=== PATIENT | female | born 1965 | race Caucasian/White ===

== ENCOUNTER 2017-01-15 09:31 | Inpatient (IN) | payer MEDICARE, OTHER ==
[2017-01-15 09:40] VITALS: BMI 34.8
[2017-01-15 10:26] LABS: ALB/GLOB RATIO 1.2 (1.0-2.1); ALBUMIN 4.2 g/dL (3.5-5.0); CALCIUM 9.6 mg/dL (8.4-10.2)
--- NOTE | 2017-01-15 11:03 | ED PDOC ---
HPI: General Adult Time Seen by Provider: 01/15/17 09:42 Chief Complaint (Nursing): Abnormal Labs Chief Complaint (Provider): Abnormal Labs History Per: Patient History/Exam Limitations: no limitations Onset/Duration Of Symptoms: Days Current Symptoms Are (Timing): Still Present Additional Complaint(s): Staci is a 51 y/o female who had routine blood work done yesterday, and labs tried to call with results but couldn't reach her so police escorted her to ED today. Patient has a history of thrombocytopenia, and has had transfusions in past. Dr. Aguayo is her relay record clerk. States having bleeding gums for the past 2 days. Denies any new rash, headache, or other bleeding. Pipeline Controller: Dr. Aguayo Past Medical History Reviewed: Historical Data, Nursing Documentation, Vital Signs Vital Signs: Last Vital Signs Temp 97.9 F 01/16/17 08:00 Pulse 92 H 01/16/17 09:09 Resp 20 01/16/17 08:00 BP 128/83 01/16/17 09:09 Pulse Ox 98 01/16/17 08:00 - Medical History PMH: Bipolar Disorder, HTN, Hypercholesterolemia, Hypothyroidism Denies: Diabetes, Hepatitis, HIV, Chronic Kidney Disease, Seizures, Sexually Transmitted Disease Other PMH: thrombocytopenia - Surgical History Other surgeries: Right knee surgery - Family History Family History: States: Unknown Family Hx - Social History Current smoker - smoking cessation education provided: Yes (Light) Alcohol: None Drugs: Denies - Home Medications Home Medications: Ambulatory Orders Medication Instructions Recorded Alprazolam [Xanax] 0.5 - 1 mg PO DAILY PRN 10/18/14 Calcium Carbonate/Vitamin D 1 tab PO DAILY 10/18/14 [Calcium 1200 W/Vitamin D 600 mg-100 Iu] Citalopram Hydrobromide [Celexa] 20 mg PO DAILY 10/18/14 Cyanocobalamin [Vitamin B12] 2 tab PO DAILY 10/18/14 Folic Acid 2 tab PO DAILY 10/18/14 Hydrochlorothiazide 12.5 mg PO DAILY 10/18/14 Levothyroxine [Synthroid] 112 mcg PO DAILY 10/18/14 Losartan [Cozaar] 100 mg PO DAILY 10/18/14 [place]-3 Fatty Acids/Fish Oil [Fish 1 cap PO DAILY 10/18/14 Oil 1,000 mg Softgel] Phytonadione [Vitamin K] 1 tab PO DAILY 10/18/14 Pravastatin Sodium [Pravachol] 40 mg PO HS 10/18/14 Ferrous Sulfate [Feosol] 325 mg PO DAILY 01/15/17 Potassium Chloride [Klor-Con 8 meq PO DAILY 01/15/17 Sprinkle] hydroCHLOROthiazide [Hydrodiuril] 25 mg PO DAILY 01/15/17 - Allergies Allergies/Adverse Reactions: Allergies Allergy/AdvReac Type Severity Reaction Status Date / Time codeine AdvReac NAUSEA Verified 01/15/17 14:44 Review of Systems ROS Statement: Except As Marked, All Systems Reviewed And Found Negative ENT: Positive for: Other (Bleeding gums) Skin: Positive for: Rash (but no new rash) Neurological: Negative for: Headache Physical Exam - Reviewed Nursing Documentation Reviewed: Yes Vital Signs Reviewed: Yes - Physical Exam Appears: Positive for: Non-toxic, No Acute Distress Head Exam: Positive for: ATRAUMATIC, NORMAL INSPECTION, NORMOCEPHALIC Skin: Positive for: Warm, Dry, Rash (Chronic rash to the extremities, reticular rash (old)) Eye Exam: Positive for: EOMI, Normal appearance, PERRL Neck: Positive for: Normal, Painless ROM, Supple Cardiovascular/Chest: Positive for: Regular Rate, Rhythm. Negative for: Murmur Respiratory: Positive for: Normal Breath Sounds. Negative for: Accessory Muscle Use, Respiratory Distress Gastrointestinal/Abdominal: Positive for: Soft. Negative for: Tenderness Back: Positive for: Normal Inspection. Negative for: Vertebral Tenderness Extremity: Positive for: Normal ROM. Negative for: Pedal Edema, Deformity Neurologic/Psych: Positive for: Alert, Oriented - Laboratory Results Result Diagrams: 01/16/17 06:00 01/15/17 10:00 - ECG O2 Sat by Pulse Oximetry: 100 (RA) Pulse Ox Interpretation: Normal - Physician Consult Information Time Consulting Physican Contacted: 11:00 Physician Contacted: Jak Aguayo Outcome Of Conversation: Recommends Solumedrol 125 mg IV then 40 mg q12 and 1 bag platelets. Medical Decision Making Medical Decision Making: Time: 9:54 Initial Plan: --CMP --CBC w differential --PTT --Prothrombin time --ED Urine dipstick --Urinalysis --Pending reevaluation Time: 10:52 --Blood type and screen Time: 11:00 --Discussed patient with relay record clerk, Dr. Jak Aguayo, who recommended Solu- medrol and then 40 mg q12 and 1 bag platelets Time: 11:20 --Ordered Solu-medrol 125 mg IV --40 mg q12 and 1 bag platelets Time: 11:51 --Patient is to be admitted inpatient for thrombocytopenia, ITP, anemia Time: 12:16 --Trasnfusion ordered --Ordered CXR Scribe Attestation: Documented by Evonne Felix, acting as a scribe for Kalyn Bradley MD Provider Scribe Attestation: All medical record entries made by the Scribe were at my direction and personally dictated by me. I have reviewed the chart and agree that the record accurately reflects my personal performance of the history, physical exam, medical decision making, and the department course for this patient. I have also personally directed, reviewed, and agree with the discharge instructions and disposition. Disposition - Clinical Impression Clinical Impression: Thrombocytopenia, Anemia - Patient ED Disposition Is Patient to be Admitted: Yes - Disposition Disposition Time: 11:51 Condition: STABLE - Pt Status Changed To: Hospital Disposition Of: Inpatient - Admit Certification Admit to Inpatient:: After my assessment, the patient will require hospitalization for at least two midnights. This is because of the severity of symptoms shown, intensity of services needed, and/or the medical risk in this patient being treated as an outpatient. - POA Present On Arrival: None
[2017-01-15 11:22] LABS: BASO % 0.5 % (0.0-2.0); EOS # 0.1 K/uL (0.0-0.7); EOS % 1.8 % (0.0-4.0); LYMPH # 1.1 K/uL (1.0-4.3); LYMPH % 20.1 % (20.0-40.0); MEAN CORPUSCULAR HEMOGLOBIN 33.2 pg (27.0-31.0); MEAN CORPUSCULAR HGB CONC 34.9 g/dL (33.0-37.0); MEAN PLATELET VOLUME 9.9 fl (7.2-11.7); MONO # 0.3 K/uL (0.0-0.8); MONO % 5.1 % (0.0-10.0); NEUT # 3.9 K/uL (1.8-7.0); NEUT % 72.5 % (50.0-75.0); NRBC % 0.1 % (0.0-0.0); RBC 2.34 Mil/uL (3.80-5.20); RED CELL DISTRIBUTION WIDTH 16.9 % (11.5-14.5); WHITE BLOOD COUNT 5.4 K/uL (4.8-10.8)
[2017-01-15 11:27] LABS: HEMOGLOBIN 7.8 g/dL (12.0-16.0); MEAN CELL VOLUME 95.2 fl (81.0-99.0)
[2017-01-15 11:31] LABS: INR 1.2 (0.9-1.2); PROTHROMBIN TIME 12.3 Seconds (9.8-13.1)
[2017-01-15 11:33] LABS: SQUAMOUS EPITHIAL < 1 /hpf (0-5); URINE BILIRUBIN NEGATIVE (NEGATIVE); URINE BLOOD SMALL (NEGATIVE); URINE CLARITY CLEAR (Clear); URINE COLOR YELLOW (YELLOW); URINE GLUCOSE (UA) NEG (Normal); URINE LEUKOCYTE ESTERASE NEG Leu/uL (Negative); URINE NITRATE NEGATIVE (NEGATIVE); URINE PROTEIN NEGATIVE (NEGATIVE); URINE UROBILINOGEN 0.2-1.0 mg/dL (0.2-1.0)
[2017-01-15 12:22] LABS: PARTIAL THROMBOPLASTIN TIME 59.6 Seconds (25.6-37.1)
--- NOTE | 2017-01-15 20:02 | RAD ---
HISTORY: Admission COMPARISON: No prior. FINDINGS: LUNGS: No active pulmonary disease. PLEURA: No significant pleural effusion identified, no pneumothorax apparent. CARDIOVASCULAR: Normal. OSSEOUS STRUCTURES: No significant abnormalities. VISUALIZED UPPER ABDOMEN: Normal. OTHER FINDINGS: None. IMPRESSION: No active disease.
[2017-01-15] MEDS: methylPREDNISolone 40 MG in Sodium Chloride 0.9% 50 ML IVPB SCH (21:04)
[2017-01-15] MEDS: Pravastatin Sodium 40 MG TAB PO SCH (22:10)
--- NOTE | 2017-01-16 01:51 | CP.PCM.CON ---
History of Present Illness - History of Present Illness History of Present Illness: 49 year old female with a history of depression, ITP s/p Rituximab, admitted with gingival bleeding, anemia, and thrombocytopenia. The patient was succesfully treated for ITP with steroids and rituximab. She notes to gingival bleeding when brushing her teeth which prompted her to come to the ER. In the ER she was found to have a plt count of 4,000. She is s/p 1 bag of platelets and currently receiving IV steroids. Past medical history: Depression, ITP Past surgical history: None Family history: Denies hematologic and oncologic problems. Social history: Denies tobacco, alcohol, and illicit drug use. Allergies: Codeine Review of systems: All remaining review of systems including HEENT, cardiovascular, respiratory, gastrointestinal, genitourinary, musculoskeletal, dermatologic, neurologic, and psychiatric are negative unless mentioned in the HPI. Past Patient History - Infectious Disease Hx of Infectious Diseases: None - Past Medical History & Family History Past Medical History?: Yes - Past Social History Smoking Status: Former Smoker - CARDIAC Hx Hypercholesterolemia: Yes Hx Hypertension: Yes - PULMONARY Hx Tuberculosis: No - NEUROLOGICAL Hx Neurological Disorder: Yes Hx Seizures: No Hx Transient Ischemic Attacks (TIA): Yes (x3) - HEENT Hx HEENT Problems: No - RENAL Hx Chronic Kidney Disease: No - ENDOCRINE/METABOLIC Hx Hypothyroidism: Yes - HEMATOLOGICAL/ONCOLOGICAL Hx AIDS: No Hx Human Immunodeficiency Virus (HIV): No Other/Comment: Thrombocytopenia, ITP,Anemia - INTEGUMENTARY Hx Dermatological Problems: No - MUSCULOSKELETAL/RHEUMATOLOGICAL Hx Falls: No - GASTROINTESTINAL Hx Gastrointestinal Disorders: No - GENITOURINARY/GYNECOLOGICAL Hx Sexually Transmitted Disorders: No - PSYCHIATRIC Hx Bipolar Disorder: Yes Hx Substance Use: No - SURGICAL HISTORY Hx Surgeries: Yes Other/Comment: right knee surgery, head surgery with stitches secondary to accident at age of 6. - ANESTHESIA Hx Anesthesia: Yes Hx Anesthesia Reactions: No Hx Malignant Hyperthermia: No Meds Allergies/Adverse Reactions: Allergies Allergy/AdvReac Type Severity Reaction Status Date / Time codeine AdvReac NAUSEA Verified 01/15/17 14:44 - Medications Medications: Current Medications Alprazolam (Xanax) 0.5 mg PO DAILY PRN PRN Reason: Anxiety Citalopram Hydrobromide (Celexa) 20 mg PO DAILY [facility] Cyanocobalamin (Vitamin B12 1000 Mcg Tab) 1,000 mcg PO DAILY [facility] Ferrous Sulfate (Feosol) 325 mg PO DAILY [facility] Home Med (Folic Acid [Folic Acid]) 2 tab PO DAILY [facility] Home Med (Phytonadione [Vitamin K]) 1 tab PO DAILY [facility] Home Med (Calcium Carbonate/Vitamin D [Calcium 1200 W/Vitamin D 500 Mg-100 Iu]) 1 tab PO DAILY [facility] Hydrochlorothiazide (Hydrodiuril) 25 mg PO DAILY [facility] Last Admin: 01/15/17 21:04 Dose: 25 mg Hydrochlorothiazide (Microzide) 12.5 mg PO DAILY [facility] Methylprednisolone 40 mg/ (Sodium Chloride) 50 mls @ 100 mls/hr IVPB Q12 [facility] Last Admin: 01/15/17 21:04 Dose: 100 mls/hr Levothyroxine Sodium (Synthroid) 112 mcg PO DAILY@0630 [facility] Losartan Potassium (Cozaar) 100 mg PO DAILY [facility] Last Admin: 01/15/17 21:03 Dose: 100 mg Qoamw-5-Hakh Ethyl Esters (Lovaza) 1 gm PO DAILY [facility] Pravastatin Sodium (Pravachol) 40 mg PO HS [facility] Last Admin: 01/15/17 22:10 Dose: 40 mg Physical Exam - Head Exam Head Exam: ATRAUMATIC - Eye Exam Eye Exam: Normal appearance - ENT Exam ENT Exam: Mucous Membranes Dry - Respiratory Exam Respiratory Exam: NORMAL BREATHING PATTERN - Cardiovascular Exam Cardiovascular Exam: +S1, +S2 - GI/Abdominal Exam GI & Abdominal Exam: Normal Bowel Sounds - Extremities Exam Extremities exam: Positive for: normal inspection - Neurological Exam Neurological exam: Oriented x3 - Psychiatric Exam Psychiatric exam: Normal Affect, Normal Mood - Skin Skin Exam: Warm Results - Vital Signs Recent Vital Signs: Last Vital Signs Temp 97.8 F 01/16/17 00:15 Pulse 92 H 01/16/17 00:15 Resp 20 01/16/17 00:15 BP 114/74 01/16/17 00:15 Pulse Ox 95 01/16/17 00:15 - Labs Result Diagrams: 01/15/17 11:00 01/15/17 10:00 Assessment & Plan (1) Thrombocytopenia Assessment and Plan: likely relapsed ITP s/p 1 bag platelets on IV steroids repeat CBC in AM Status: Acute (2) Anemia Assessment and Plan: will check ferritin, retic count, b12, folate to further characterize transfusion support PRN Thank you for this interesting consult. Status: Acute
[2017-01-16] MEDS: Levothyroxine 112 MCG TAB PO SCH (06:13)
[2017-01-16 08:01] LABS: BASO % 0.2 % (0.0-2.0); HEMOGLOBIN 7.6 g/dL (12.0-16.0); LYMPH # 1.4 K/uL (1.0-4.3); LYMPH % 10.4 % (20.0-40.0); MEAN CELL VOLUME 93.4 fl (81.0-99.0); MEAN CORPUSCULAR HEMOGLOBIN 33.1 pg (27.0-31.0); MEAN CORPUSCULAR HGB CONC 35.4 g/dL (33.0-37.0); MEAN PLATELET VOLUME 9.6 fl (7.2-11.7); MONO # 0.5 K/uL (0.0-0.8); MONO % 3.7 % (0.0-10.0); NEUT # 11.2 K/uL (1.8-7.0); NEUT % 85.7 % (50.0-75.0); NRBC % 0.1 % (0.0-0.0); RBC 2.3 Mil/uL (3.80-5.20); RED CELL DISTRIBUTION WIDTH 16.8 % (11.5-14.5)
[2017-01-16] MEDS ORDERED: OMEGA PO SCH (09:00)
[2017-01-16] MEDS ORDERED: CYANOCOBALAMIN PO SCH ×2 (09:00)
[2017-01-16] MEDS ORDERED: FOLIC ACID PO SCH (09:00)
[2017-01-16] MEDS ORDERED: FATTY ACIDS PO SCH (09:00)
[2017-01-16] MEDS ORDERED: PHYTONADIONE PO SCH (09:00)
[2017-01-16] MEDS ORDERED: POTASSIUM CHLORIDE 8 MEQ PO SCH (09:00)
[2017-01-16] MEDS ORDERED: FISH OIL PO SCH (09:00)
[2017-01-16] MEDS ORDERED: CITALOPRAM HYDROBROMIDE 20 MG PO SCH ×2 (09:00)
[2017-01-16] MEDS: Calcium-Vit D 250 mg-125 Units Tab UD PO SCH (09:09)
[2017-01-16] MEDS: Omega-3-Acid Ethyl Esters 1 GM Cap PO SCH (09:10)
[2017-01-16] MEDS: methylPREDNISolone 40 MG in Sodium Chloride 0.9% 50 ML IVPB SCH ×2 (09:13→21:09)
--- NOTE | 2017-01-16 09:42 | CARD ---
APPROVED REPORT EKG Measurement Heart [id number] <Conclusion> Normal sinus rhythm T wave abnormality, consider lateral ischemia Abnormal ECG
[2017-01-16 17:01] LABS: FOLATE 8.1 ng/mL
[2017-01-16] MEDS: Pravastatin Sodium 40 MG TAB PO SCH (21:09)
[2017-01-17 06:37] LABS: HEMOGLOBIN 7.8 g/dL (12.0-16.0); MEAN CELL VOLUME 94.1 fl (81.0-99.0); MEAN CORPUSCULAR HEMOGLOBIN 32.9 pg (27.0-31.0); MEAN CORPUSCULAR HGB CONC 34.9 g/dL (33.0-37.0); RBC 2.38 Mil/uL (3.80-5.20); RED CELL DISTRIBUTION WIDTH 17.1 % (11.5-14.5); WHITE BLOOD COUNT 20.1 K/uL (4.8-10.8)
[2017-01-17] MEDS: Levothyroxine 112 MCG TAB PO SCH (07:06)
[2017-01-17] MEDS: methylPREDNISolone 40 MG in Sodium Chloride 0.9% 50 ML IVPB SCH ×2 (09:07→21:54)
[2017-01-17] MEDS: Omega-3-Acid Ethyl Esters 1 GM Cap PO SCH (09:08)
[2017-01-17] MEDS: Calcium-Vit D 250 mg-125 Units Tab UD PO SCH (09:10)
--- NOTE | 2017-01-17 10:06 | CP.PCM.HP ---
History of Present Illness - History of Present Illness History of Present Illness: This is a 51 y/o female with hx of ITP and has been on tx with Rituximan and steroids was admitted for very low platelet and Hgb. She follows up with Dr Aguayo. Has ahx of HTn and depression. Past Patient History - Infectious Disease Hx of Infectious Diseases: None - Past Medical History & Family History Past Medical History?: Yes - Past Social History Alcohol: None Drugs: Denies - CARDIAC Hx Hypercholesterolemia: Yes Hx Hypertension: Yes - PULMONARY Hx Tuberculosis: No - NEUROLOGICAL Hx Seizures: No - HEENT Hx HEENT Problems: No - RENAL Hx Chronic Kidney Disease: No - ENDOCRINE/METABOLIC Hx Hypothyroidism: Yes - HEMATOLOGICAL/ONCOLOGICAL Hx Human Immunodeficiency Virus (HIV): No - INTEGUMENTARY Hx Dermatological Problems: No - MUSCULOSKELETAL/RHEUMATOLOGICAL Hx Falls: No - GASTROINTESTINAL Hx Gastrointestinal Disorders: No - GENITOURINARY/GYNECOLOGICAL Hx Sexually Transmitted Disorders: No - PSYCHIATRIC Hx Bipolar Disorder: Yes - SURGICAL HISTORY Hx Surgeries: Yes Other/Comment: right knee surgery, head surgery with stitches secondary to accident at age of 6. - ANESTHESIA Hx Anesthesia: Yes Hx Anesthesia Reactions: No Hx Malignant Hyperthermia: No Meds Allergies/Adverse Reactions: Allergies Allergy/AdvReac Type Severity Reaction Status Date / Time codeine AdvReac NAUSEA Verified 01/15/17 14:44 Results - Vital Signs Recent Vital Signs: Last Vital Signs Temp 97.7 F 01/17/17 08:00 Pulse 80 01/17/17 09:09 Resp 18 01/17/17 08:00 BP 130/74 01/17/17 09:09 Pulse Ox 99 01/17/17 08:00 - Labs Result Diagrams: 01/17/17 06:10 01/15/17 10:00 Labs: Laboratory Results - last 24 hr 01/16/17 01/17/17 05:30 06:10 WBC 20.1 H D RBC 2.38 L Hgb 7.8 L Hct 22.4 L MCV 94.1 MCH 32.9 H MCHC 34.9 RDW 17.1 H Plt Count 15 L* D Manual Plt Count 26 L* Folate 8.1
--- NOTE | 2017-01-17 10:09 | CP.PCM.PN ---
Subjective - Date & Time of Evaluation Date of Evaluation: 01/17/17 Time of Evaluation: 10:09 - Subjective Subjective: patient feels a lot better. Still awaiting for PRBC transfusion. Has no chest pain or SOB. Objective - Vital Signs/Intake and Output Vital Signs (last 24 hours): Temp Pulse Resp BP Pulse Ox 97.7 F 80 18 130/74 99 01/17/17 08:00 01/17/17 09:09 01/17/17 08:00 01/17/17 09:09 01/17/17 08:00 - Medications Medications: Current Medications Acetaminophen (Tylenol 325mg Tab) 650 mg PO Q4 PRN PRN Reason: Headache Alprazolam (Xanax) 0.5 mg PO DAILY PRN PRN Reason: Anxiety Calcium/Vitamin D (Oscal-D 250 Mg-125 Units Tab) 2 tab PO DAILY [facility] Last Admin: 01/17/17 09:10 Dose: 2 tab Citalopram Hydrobromide (Celexa) 20 mg PO DAILY [facility] Last Admin: 01/17/17 09:08 Dose: 20 mg Cyanocobalamin (Vitamin B12 1000 Mcg Tab) 1,000 mcg PO DAILY [facility] Last Admin: 01/17/17 09:11 Dose: 1,000 mcg Ferrous Sulfate (Feosol) 325 mg PO DAILY [facility] Last Admin: 01/17/17 09:10 Dose: 325 mg Folic Acid (Folic Acid) 1 mg PO DAILY [facility] Last Admin: 01/17/17 09:10 Dose: 1 mg Home Med (Phytonadione [Vitamin K]) 1 tab PO DAILY [facility] Hydrochlorothiazide (Hydrodiuril) 50 mg PO DAILY [facility] Last Admin: 01/17/17 09:10 Dose: 50 mg Methylprednisolone 40 mg/ (Sodium Chloride) 50 mls @ 100 mls/hr IVPB Q12 [facility] Last Admin: 01/17/17 09:07 Dose: 100 mls/hr Levothyroxine Sodium (Synthroid) 112 mcg PO DAILY@0630 [facility] Last Admin: 01/17/17 07:06 Dose: 112 mcg Losartan Potassium (Cozaar) 100 mg PO DAILY [facility] Last Admin: 01/17/17 09:09 Dose: 100 mg Hksyb-6-Kczz Ethyl Esters (Lovaza) 1 gm PO DAILY [facility] Last Admin: 01/17/17 09:08 Dose: 1 gm Pravastatin Sodium (Pravachol) 40 mg PO HS [facility] Last Admin: 01/16/17 21:09 Dose: 40 mg - Labs Labs: 01/17/17 06:10 PT 12.3 Seconds (9.8-13.1) 01/15/17 10:00 INR 1.2 (0.9-1.2) 01/15/17 10:00 APTT 59.6 Seconds (25.6-37.1) H 01/15/17 10:00
--- NOTE | 2017-01-17 10:09 | CP.PCM.PN ---
Subjective - Date & Time of Evaluation Date of Evaluation: 01/16/17 Time of Evaluation: 10:00 - Subjective Subjective: \ Patient complains of some headaches Has no chest pain or SOB Noted improvement of platelet , Still needs to have PRBC transfusion. Objective - Vital Signs/Intake and Output Vital Signs (last 24 hours): Temp Pulse Resp BP Pulse Ox 97.7 F 80 18 130/74 99 01/17/17 08:00 01/17/17 09:09 01/17/17 08:00 01/17/17 09:09 01/17/17 08:00 - Medications Medications: Current Medications Acetaminophen (Tylenol 325mg Tab) 650 mg PO Q4 PRN PRN Reason: Headache Alprazolam (Xanax) 0.5 mg PO DAILY PRN PRN Reason: Anxiety Calcium/Vitamin D (Oscal-D 250 Mg-125 Units Tab) 2 tab PO DAILY [facility] Last Admin: 01/17/17 09:10 Dose: 2 tab Citalopram Hydrobromide (Celexa) 20 mg PO DAILY [facility] Last Admin: 01/17/17 09:08 Dose: 20 mg Cyanocobalamin (Vitamin B12 1000 Mcg Tab) 1,000 mcg PO DAILY [facility] Last Admin: 01/17/17 09:11 Dose: 1,000 mcg Ferrous Sulfate (Feosol) 325 mg PO DAILY [facility] Last Admin: 01/17/17 09:10 Dose: 325 mg Folic Acid (Folic Acid) 1 mg PO DAILY [facility] Last Admin: 01/17/17 09:10 Dose: 1 mg Home Med (Phytonadione [Vitamin K]) 1 tab PO DAILY [facility] Hydrochlorothiazide (Hydrodiuril) 50 mg PO DAILY [facility] Last Admin: 01/17/17 09:10 Dose: 50 mg Methylprednisolone 40 mg/ (Sodium Chloride) 50 mls @ 100 mls/hr IVPB Q12 [facility] Last Admin: 01/17/17 09:07 Dose: 100 mls/hr Levothyroxine Sodium (Synthroid) 112 mcg PO DAILY@0630 [facility] Last Admin: 01/17/17 07:06 Dose: 112 mcg Losartan Potassium (Cozaar) 100 mg PO DAILY [facility] Last Admin: 01/17/17 09:09 Dose: 100 mg Mpnld-2-Rltz Ethyl Esters (Lovaza) 1 gm PO DAILY [facility] Last Admin: 01/17/17 09:08 Dose: 1 gm Pravastatin Sodium (Pravachol) 40 mg PO HS [facility] Last Admin: 01/16/17 21:09 Dose: 40 mg - Labs Labs: 01/17/17 06:10 PT 12.3 Seconds (9.8-13.1) 01/15/17 10:00 INR 1.2 (0.9-1.2) 01/15/17 10:00 APTT 59.6 Seconds (25.6-37.1) H 01/15/17 10:00
--- NOTE | 2017-01-17 11:58 | CP.PCM.CON ---
History of Present Illness - History of Present Illness History of Present Illness: Psychiatry Consult called for evaluation of depression CC: "I was crying yesterday, but I'm okay now" HPI: 49 year old female with a history of depression, ITP s/p Rituximab, admitted with gingival bleeding, anemia, and thrombocytopenia. The patient was succesfully treated for ITP with steroids and rituximab. She notes to gingival bleeding when brushing her teeth which prompted her to come to the ER. In the ER she was found to have a plt count of 4,000. She is s/p 1 bag of platelets and currently receiving IV steroids. Patient reports that she was upset yesterday and cried to the green coffee blender, but that her depression is otherwise stable. She has been on higher doses of Celexa but found it to be too sedating at higher doses. No current anxiety. No psychosis/ paranoia. No suicidal/homicidal ideation. Past psychiatric history: No h/o psychiatric hospitalization. Currently taking Celexa 20 mg PO Daily and Xanax 0.5 PRN. Outpatient tx w/ Dr. Thorne. Past medical history: Depression, ITP Past surgical history: None Family history: Family h/o bipolar disorder Social history: Denies tobacco, alcohol, and illicit drug use. Allergies: Codeine MSE: A + O x 3, calm, cooperative, no acute distress, mood "fine", affect- broad , thought process- linear/coherent, thought content- no delusions, no hallucinations, no SI/HI, good I/J. Impression: 49 year old female with a history of depression, ITP s/p Rituximab, admitted with gingival bleeding, anemia, and thrombocytopenia. Patient is currently psychiatrically stable. -No need for acute psychiatric admission -Continue Celexa 20 mg PO Daily and PRN Xanax 0.5 mg for extreme anxiety -Re-consult w/ further questions Past Patient History - Infectious Disease Hx of Infectious Diseases: None - Past Medical History & Family History Past Medical History?: Yes - Past Social History Alcohol: None Drugs: Denies - CARDIAC Hx Hypercholesterolemia: Yes Hx Hypertension: Yes - PULMONARY Hx Tuberculosis: No - NEUROLOGICAL Hx Seizures: No - HEENT Hx HEENT Problems: No - RENAL Hx Chronic Kidney Disease: No - ENDOCRINE/METABOLIC Hx Hypothyroidism: Yes - HEMATOLOGICAL/ONCOLOGICAL Hx Human Immunodeficiency Virus (HIV): No - INTEGUMENTARY Hx Dermatological Problems: No - MUSCULOSKELETAL/RHEUMATOLOGICAL Hx Falls: No - GASTROINTESTINAL Hx Gastrointestinal Disorders: No - GENITOURINARY/GYNECOLOGICAL Hx Sexually Transmitted Disorders: No - PSYCHIATRIC Hx Bipolar Disorder: Yes - SURGICAL HISTORY Hx Surgeries: Yes Other/Comment: right knee surgery, head surgery with stitches secondary to accident at age of 6. - ANESTHESIA Hx Anesthesia: Yes Hx Anesthesia Reactions: No Hx Malignant Hyperthermia: No Meds Allergies/Adverse Reactions: Allergies Allergy/AdvReac Type Severity Reaction Status Date / Time codeine AdvReac NAUSEA Verified 01/15/17 14:44 - Medications Medications: Current Medications Acetaminophen (Tylenol 325mg Tab) 650 mg PO Q4 PRN PRN Reason: Headache Alprazolam (Xanax) 0.5 mg PO DAILY PRN PRN Reason: Anxiety Last Admin: 01/17/17 10:33 Dose: 0.5 mg Calcium/Vitamin D (Oscal-D 250 Mg-125 Units Tab) 2 tab PO DAILY [facility] Last Admin: 01/17/17 09:10 Dose: 2 tab Citalopram Hydrobromide (Celexa) 20 mg PO DAILY [facility] Last Admin: 01/17/17 09:08 Dose: 20 mg Cyanocobalamin (Vitamin B12 1000 Mcg Tab) 1,000 mcg PO DAILY [facility] Last Admin: 01/17/17 09:11 Dose: 1,000 mcg Ferrous Sulfate (Feosol) 325 mg PO DAILY [facility] Last Admin: 01/17/17 09:10 Dose: 325 mg Folic Acid (Folic Acid) 1 mg PO DAILY [facility] Last Admin: 01/17/17 09:10 Dose: 1 mg Home Med (Phytonadione [Vitamin K]) 1 tab PO DAILY [facility] Hydrochlorothiazide (Hydrodiuril) 50 mg PO DAILY [facility] Last Admin: 01/17/17 09:10 Dose: 50 mg Methylprednisolone 40 mg/ (Sodium Chloride) 50 mls @ 100 mls/hr IVPB Q12 [facility] Last Admin: 01/17/17 09:07 Dose: 100 mls/hr Levothyroxine Sodium (Synthroid) 112 mcg PO DAILY@0630 [facility] Last Admin: 01/17/17 07:06 Dose: 112 mcg Losartan Potassium (Cozaar) 100 mg PO DAILY [facility] Last Admin: 01/17/17 09:09 Dose: 100 mg Yjjrd-8-Asmh Ethyl Esters (Lovaza) 1 gm PO DAILY [facility] Last Admin: 01/17/17 09:08 Dose: 1 gm Pravastatin Sodium (Pravachol) 40 mg PO HS [facility] Last Admin: 01/16/17 21:09 Dose: 40 mg Results - Vital Signs Recent Vital Signs: Last Vital Signs Temp 97.7 F 01/17/17 08:00 Pulse 80 01/17/17 09:09 Resp 18 01/17/17 08:00 BP 130/74 01/17/17 09:09 Pulse Ox 99 01/17/17 08:00 - Labs Result Diagrams: 01/17/17 06:10 01/15/17 10:00 Labs: Laboratory Results - last 24 hr 01/16/17 01/17/17 05:30 06:10 WBC 20.1 H D RBC 2.38 L Hgb 7.8 L Hct 22.4 L MCV 94.1 MCH 32.9 H MCHC 34.9 RDW 17.1 H Plt Count 15 L* D Manual Plt Count 26 L* Folate 8.1
[2017-01-17] MEDS: Pravastatin Sodium 40 MG TAB PO SCH (21:53)
[2017-01-18] MEDS: Levothyroxine 112 MCG TAB PO SCH (07:04)
[2017-01-18 07:23] LABS: HEMOGLOBIN 8.2 g/dL (12.0-16.0); MEAN CELL VOLUME 94.8 fl (81.0-99.0); MEAN CORPUSCULAR HEMOGLOBIN 33.2 pg (27.0-31.0); RBC 2.46 Mil/uL (3.80-5.20); RED CELL DISTRIBUTION WIDTH 16.9 % (11.5-14.5); WHITE BLOOD COUNT 17.2 K/uL (4.8-10.8)
[2017-01-18 07:30] LABS: CALCIUM 9.5 mg/dL (8.4-10.2)
--- NOTE | 2017-01-18 08:12 | CP.PCM.PN ---
Subjective - Date & Time of Evaluation Date of Evaluation: 01/16/17 Time of Evaluation: 15:00 - Subjective Subjective: No complaints Denies bleeding Objective - Vital Signs/Intake and Output Vital Signs (last 24 hours): Temp Pulse Resp BP Pulse Ox 97.9 F 79 18 121/77 97 01/18/17 08:00 01/18/17 08:00 01/18/17 08:00 01/18/17 08:00 01/18/17 08:00 Intake and Output: 01/18/17 01/18/17 06:59 18:59 Intake Total 370 Balance 370 - Medications Medications: Current Medications Acetaminophen (Tylenol 325mg Tab) 650 mg PO Q4 PRN PRN Reason: Headache Alprazolam (Xanax) 0.5 mg PO DAILY PRN PRN Reason: Anxiety Last Admin: 01/17/17 10:33 Dose: 0.5 mg Calcium/Vitamin D (Oscal-D 250 Mg-125 Units Tab) 2 tab PO DAILY [facility] Last Admin: 01/17/17 09:10 Dose: 2 tab Citalopram Hydrobromide (Celexa) 20 mg PO DAILY [facility] Last Admin: 01/17/17 09:08 Dose: 20 mg Cyanocobalamin (Vitamin B12 1000 Mcg Tab) 1,000 mcg PO DAILY [facility] Last Admin: 01/17/17 09:11 Dose: 1,000 mcg Ferrous Sulfate (Feosol) 325 mg PO DAILY [facility] Last Admin: 01/17/17 09:10 Dose: 325 mg Folic Acid (Folic Acid) 1 mg PO DAILY [facility] Last Admin: 01/17/17 09:10 Dose: 1 mg Home Med (Phytonadione [Vitamin K]) 1 tab PO DAILY [facility] Hydrochlorothiazide (Hydrodiuril) 50 mg PO DAILY [facility] Last Admin: 01/17/17 09:10 Dose: 50 mg Methylprednisolone 40 mg/ (Sodium Chloride) 50 mls @ 100 mls/hr IVPB Q12 [facility] Last Admin: 01/17/17 21:54 Dose: 100 mls/hr Levothyroxine Sodium (Synthroid) 112 mcg PO DAILY@0630 [facility] Last Admin: 01/18/17 07:04 Dose: 112 mcg Losartan Potassium (Cozaar) 100 mg PO DAILY [facility] Last Admin: 01/17/17 09:09 Dose: 100 mg Tjduv-7-[id number] Ethyl Esters (Lovaza) 1 gm PO DAILY [facility] Last Admin: 01/17/17 09:08 Dose: 1 gm Pravastatin Sodium (Pravachol) 40 mg PO HS [facility] Last Admin: 01/17/17 21:53 Dose: 40 mg - Labs Labs: 01/18/17 06:25 01/18/17 06:25 PT 12.3 Seconds (9.8-13.1) 01/15/17 10:00 INR 1.2 (0.9-1.2) 01/15/17 10:00 APTT 59.6 Seconds (25.6-37.1) H 01/15/17 10:00 - Head Exam Head Exam: ATRAUMATIC - Eye Exam Eye Exam: Normal appearance - ENT Exam ENT Exam: Mucous Membranes Dry - Respiratory Exam Respiratory Exam: NORMAL BREATHING PATTERN - Cardiovascular Exam Cardiovascular Exam: +S1, +S2 - GI/Abdominal Exam GI & Abdominal Exam: Normal Bowel Sounds - Extremities Exam Extremities Exam: Normal Inspection Assessment and Plan (1) Thrombocytopenia Assessment & Plan: secondary to ITP plt count improving with steroids Status: Acute (2) Anemia Assessment & Plan: awaiting PRBC transfusion Status: Acute
--- NOTE | 2017-01-18 08:14 | CP.PCM.PN ---
Subjective - Date & Time of Evaluation Date of Evaluation: 01/17/17 Time of Evaluation: 21:00 - Subjective Subjective: No complaints No bleeding Objective - Vital Signs/Intake and Output Vital Signs (last 24 hours): Temp Pulse Resp BP Pulse Ox 97.9 F 79 18 121/77 97 01/18/17 08:00 01/18/17 08:00 01/18/17 08:00 01/18/17 08:00 01/18/17 08:00 Intake and Output: 01/18/17 01/18/17 06:59 18:59 Intake Total 370 Balance 370 - Medications Medications: Current Medications Acetaminophen (Tylenol 325mg Tab) 650 mg PO Q4 PRN PRN Reason: Headache Alprazolam (Xanax) 0.5 mg PO DAILY PRN PRN Reason: Anxiety Last Admin: 01/17/17 10:33 Dose: 0.5 mg Calcium/Vitamin D (Oscal-D 250 Mg-125 Units Tab) 2 tab PO DAILY [facility] Last Admin: 01/17/17 09:10 Dose: 2 tab Citalopram Hydrobromide (Celexa) 20 mg PO DAILY [facility] Last Admin: 01/17/17 09:08 Dose: 20 mg Cyanocobalamin (Vitamin B12 1000 Mcg Tab) 1,000 mcg PO DAILY [facility] Last Admin: 01/17/17 09:11 Dose: 1,000 mcg Ferrous Sulfate (Feosol) 325 mg PO DAILY [facility] Last Admin: 01/17/17 09:10 Dose: 325 mg Folic Acid (Folic Acid) 1 mg PO DAILY [facility] Last Admin: 01/17/17 09:10 Dose: 1 mg Home Med (Phytonadione [Vitamin K]) 1 tab PO DAILY [facility] Hydrochlorothiazide (Hydrodiuril) 50 mg PO DAILY [facility] Last Admin: 01/17/17 09:10 Dose: 50 mg Methylprednisolone 40 mg/ (Sodium Chloride) 50 mls @ 100 mls/hr IVPB Q12 [facility] Last Admin: 01/17/17 21:54 Dose: 100 mls/hr Levothyroxine Sodium (Synthroid) 112 mcg PO DAILY@0630 [facility] Last Admin: 01/18/17 07:04 Dose: 112 mcg Losartan Potassium (Cozaar) 100 mg PO DAILY [facility] Last Admin: 01/17/17 09:09 Dose: 100 mg [id number] Ethyl Esters (Lovaza) 1 gm PO DAILY [facility] Last Admin: 01/17/17 09:08 Dose: 1 gm Pravastatin Sodium (Pravachol) 40 mg PO HS [facility] Last Admin: 01/17/17 21:53 Dose: 40 mg - Labs Labs: 01/18/17 06:25 01/18/17 06:25 PT 12.3 Seconds (9.8-13.1) 01/15/17 10:00 INR 1.2 (0.9-1.2) 01/15/17 10:00 APTT 59.6 Seconds (25.6-37.1) H 01/15/17 10:00 - Head Exam Head Exam: ATRAUMATIC - Eye Exam Eye Exam: Normal appearance - ENT Exam ENT Exam: Mucous Membranes Dry - Respiratory Exam Respiratory Exam: NORMAL BREATHING PATTERN - Cardiovascular Exam Cardiovascular Exam: +S1, +S2 - Extremities Exam Extremities Exam: Normal Inspection Assessment and Plan (1) Thrombocytopenia Assessment & Plan: secondary to relapsed ITP plt count improving on steroids Status: Acute (2) Anemia Assessment & Plan: H/H improving Status: Acute
[2017-01-18] MEDS: Calcium-Vit D 250 mg-125 Units Tab UD PO SCH (09:02)
[2017-01-18] MEDS: Omega-3-Acid Ethyl Esters 1 GM Cap PO SCH (09:03)
[2017-01-18] MEDS: methylPREDNISolone 40 MG in Sodium Chloride 0.9% 50 ML IVPB SCH (09:06)
--- NOTE | 2017-01-18 18:01 | CP.PCM.PN ---
Subjective - Date & Time of Evaluation Date of Evaluation: 01/18/17 Time of Evaluation: 09:55 - Subjective Subjective: patient seen and examined with attending patient denies Cp, SOB, N/V, abdominal pain at this evaluation afebrile no events overnight Objective - Vital Signs/Intake and Output Vital Signs (last 24 hours): Temp Pulse Resp BP Pulse Ox 97.9 F 73 20 115/78 99 01/18/17 15:43 01/18/17 15:43 01/18/17 15:43 01/18/17 15:43 01/18/17 15:43 Intake and Output: 01/18/17 01/18/17 06:59 18:59 Intake Total 370 Balance 370 - Medications Medications: Current Medications Acetaminophen (Tylenol 325mg Tab) 650 mg PO Q4 PRN PRN Reason: Headache Alprazolam (Xanax) 0.5 mg PO DAILY PRN PRN Reason: Anxiety Last Admin: 01/17/17 10:33 Dose: 0.5 mg Calcium/Vitamin D (Oscal-D 250 Mg-125 Units Tab) 2 tab PO DAILY [facility] Last Admin: 01/18/17 09:02 Dose: 2 tab Citalopram Hydrobromide (Celexa) 20 mg PO DAILY [facility] Last Admin: 01/18/17 09:00 Dose: 20 mg Cyanocobalamin (Vitamin B12 1000 Mcg Tab) 1,000 mcg PO DAILY [facility] Last Admin: 01/18/17 09:06 Dose: 1,000 mcg Ferrous Sulfate (Feosol) 325 mg PO DAILY [facility] Last Admin: 01/18/17 09:01 Dose: 325 mg Folic Acid (Folic Acid) 1 mg PO DAILY [facility] Last Admin: 01/18/17 09:06 Dose: 1 mg Hydrochlorothiazide (Hydrodiuril) 50 mg PO DAILY [facility] Last Admin: 01/18/17 09:04 Dose: 50 mg Levothyroxine Sodium (Synthroid) 112 mcg PO DAILY@0630 [facility] Last Admin: 01/18/17 07:04 Dose: 112 mcg Losartan Potassium (Cozaar) 100 mg PO DAILY [facility] Last Admin: 01/18/17 09:01 Dose: 100 mg Reigf-4-Tiwk Ethyl Esters (Lovaza) 1 gm PO DAILY [facility] Last Admin: 01/18/17 09:03 Dose: 1 gm Pravastatin Sodium (Pravachol) 40 mg PO [facility] Last Admin: 01/17/17 21:53 Dose: 40 mg Prednisone (Prednisone Tab) 50 mg PO DAILY [facility] Last Admin: 01/18/17 14:28 Dose: Not Given - Labs Labs: 01/18/17 06:25 01/18/17 06:25 PT 12.3 Seconds (9.8-13.1) 01/15/17 10:00 INR 1.2 (0.9-1.2) 01/15/17 10:00 APTT 59.6 Seconds (25.6-37.1) H 01/15/17 10:00 - ENT Exam ENT Exam: Mucous Membranes Moist - Respiratory Exam Respiratory Exam: Clear to Ausculation Bilateral, NORMAL BREATHING PATTERN - Cardiovascular Exam Cardiovascular Exam: REGULAR RHYTHM, +S1, +S2 - GI/Abdominal Exam GI & Abdominal Exam: Soft, Normal Bowel Sounds. absent: Guarding, Rigid, Tenderness - Extremities Exam Extremities Exam: Normal Inspection. absent: Calf Tenderness, Pedal Edema - Neurological Exam Neurological Exam: Alert, Awake, Oriented x3 - Skin Skin Exam: Dry, Intact, Pallor Assessment and Plan - Assessment and Plan (Free Text) Assessment: 51 y/o female with hx of ITP and has been on tx with Rituximan and steroids was admitted for very low platelet and Hgb. Plan: Thrombocytopenia most likely 2/2 relapsed ITP s/p 1 bag platelets c/ w IV steroids as per Hemo recommendations f/u CBC f/u hemo recommendations. Dr. Aguayo on board Anemia H/H: 8.2/23.3 consider transfusion PRBC If transfusion is recommended by Hemo, consider give Benadryl 50 mg IV once plus Solumedrol 125 mg IV once before transfusion c/w Folic acid and iron supplementations f/u Hemo, Dr. Aguayo recommendations DVT prophylaxis SCDs for now low platelets and H/H
--- NOTE | 2017-01-18 20:16 | CP.PCM.PN ---
Subjective - Date & Time of Evaluation Date of Evaluation: 01/18/17 Time of Evaluation: 11:00 - Subjective Subjective: No complaints. Objective - Vital Signs/Intake and Output Vital Signs (last 24 hours): Temp Pulse Resp BP Pulse Ox 97.7 F 81 20 119/83 99 01/18/17 19:24 01/18/17 19:24 01/18/17 19:24 01/18/17 19:24 01/18/17 19:24 Intake and Output: 01/18/17 01/19/17 18:59 06:59 Intake Total 1310 Output Total 0 Balance 1310 - Medications Medications: Current Medications Acetaminophen (Tylenol 325mg Tab) 650 mg PO Q4 PRN PRN Reason: Headache Alprazolam (Xanax) 0.5 mg PO DAILY PRN PRN Reason: Anxiety Last Admin: 01/17/17 10:33 Dose: 0.5 mg Calcium/Vitamin D (Oscal-D 250 Mg-125 Units Tab) [address] [facility] Last Admin: 01/18/17 09:02 Dose: 2 tab Citalopram Hydrobromide (Celexa) [address] [facility] Last Admin: 01/18/17 09:00 Dose: 20 mg Cyanocobalamin (Vitamin B12 1000 Mcg Tab) 1,[address] [facility] Last Admin: 01/18/17 09:06 Dose: 1,000 mcg Ferrous Sulfate (Feosol) [address] [facility] Last Admin: 01/18/17 09:01 Dose: 325 mg Folic Acid (Folic Acid) [address] [facility] Last Admin: 01/18/17 09:06 Dose: 1 mg Hydrochlorothiazide (Hydrodiuril) [address] [facility] Last Admin: 01/18/17 09:04 Dose: 50 mg Levothyroxine Sodium (Synthroid) 112 mcg PO DAILY@0630 [facility] Last Admin: 01/18/17 07:04 Dose: 112 mcg Losartan Potassium (Cozaar) [address] [facility] Last Admin: 01/18/17 09:01 Dose: 100 mg Qdykh-3-Cidb Ethyl Esters (Lovaza) [address] [facility] Last Admin: 01/18/17 09:03 Dose: 1 gm Pravastatin Sodium (Pravachol) [address] [facility] Last Admin: 01/17/17 21:53 Dose: 40 mg Prednisone (Prednisone Tab) 50 mg PO DAILY [facility] Last Admin: 01/18/17 14:28 Dose: Not Given - Labs Labs: 01/18/17 06:25 01/18/17 06:25 PT 12.3 Seconds (9.8-13.1) 01/15/17 10:00 INR 1.2 (0.9-1.2) 01/15/17 10:00 APTT 59.6 Seconds (25.6-37.1) H 01/15/17 10:00 - Head Exam Head Exam: ATRAUMATIC - Eye Exam Eye Exam: Normal appearance - ENT Exam ENT Exam: Mucous Membranes Dry - Respiratory Exam Respiratory Exam: NORMAL BREATHING PATTERN - Cardiovascular Exam Cardiovascular Exam: +S1, +S2 - GI/Abdominal Exam GI & Abdominal Exam: Normal Bowel Sounds - Extremities Exam Extremities Exam: Normal Inspection Assessment and Plan (1) Thrombocytopenia Assessment & Plan: secondary to relapsed ITP plt improving with steroids if plt count improved tomorrow, cleared from heme standpoint for D/C will need oral Prednisone 50mg PO daily with PPI outpatient f/u of plt count with me Status: Acute (2) Anemia Assessment & Plan: H/H improved can cancel PRBC transfusion Status: Acute
[2017-01-18] MEDS: Pravastatin Sodium 40 MG TAB PO SCH (22:14)
[2017-01-19 00:05] VITALS: RESP 18
[2017-01-19 05:32] VITALS: TEMP 97.6
[2017-01-19] MEDS: Levothyroxine 112 MCG TAB PO SCH (08:57)
[2017-01-19] MEDS: Calcium-Vit D 250 mg-125 Units Tab UD PO SCH (08:59)
[2017-01-19] MEDS: Omega-3-Acid Ethyl Esters 1 GM Cap PO SCH (08:59)
--- NOTE | 2017-01-19 11:35 | CP.PCM.PN ---
Subjective - Date & Time of Evaluation Date of Evaluation: 01/19/17 Time of Evaluation: 11:15 - Subjective Subjective: No complaints, no bleeding Objective - Vital Signs/Intake and Output Vital Signs (last 24 hours): Temp Pulse Resp BP Pulse Ox 97.6 F 92 H 18 106/71 96 01/19/17 08:00 01/19/17 09:00 01/19/17 08:00 01/19/17 08:58 01/19/17 08:00 - Medications Medications: Current Medications Acetaminophen (Tylenol 325mg Tab) 650 mg PO Q4 PRN PRN Reason: Headache Alprazolam (Xanax) 0.5 mg PO DAILY PRN PRN Reason: Anxiety Last Admin: 01/17/17 10:33 Dose: 0.5 mg Calcium/Vitamin D (Oscal-D 250 Mg-125 Units Tab) 2 tab PO DAILY [facility] Last Admin: 01/19/17 08:59 Dose: 2 tab Citalopram Hydrobromide (Celexa) 20 mg PO DAILY [facility] Last Admin: 01/19/17 08:58 Dose: 20 mg Cyanocobalamin (Vitamin B12 1000 Mcg Tab) 1,000 mcg PO DAILY [facility] Last Admin: 01/19/17 09:00 Dose: 1,000 mcg Ferrous Sulfate (Feosol) 325 mg PO DAILY [facility] Last Admin: 01/19/17 08:59 Dose: 325 mg Folic Acid (Folic Acid) 1 mg PO DAILY [facility] Last Admin: 01/19/17 08:59 Dose: 1 mg Hydrochlorothiazide (Hydrodiuril) 50 mg PO DAILY [facility] Last Admin: 01/19/17 08:59 Dose: 50 mg Levothyroxine Sodium (Synthroid) 112 mcg PO DAILY@0630 [facility] Last Admin: 01/19/17 08:57 Dose: 112 mcg Losartan Potassium (Cozaar) 100 mg PO DAILY [facility] Last Admin: 01/19/17 08:58 Dose: 100 mg Ckxjf-1-Vcdu Ethyl Esters (Lovaza) 1 gm PO DAILY [facility] Last Admin: 01/19/17 08:59 Dose: 1 gm Pravastatin Sodium (Pravachol) 40 mg PO HS [facility] Last Admin: 01/18/17 22:14 Dose: 40 mg Prednisone (Prednisone Tab) 50 mg PO DAILY [facility] Last Admin: 01/19/17 09:00 Dose: Not Given - Labs Labs: 01/18/17 06:25 01/18/17 06:25 PT 12.3 Seconds (9.8-13.1) 01/15/17 10:00 INR 1.2 (0.9-1.2) 01/15/17 10:00 APTT 59.6 Seconds (25.6-37.1) H 01/15/17 10:00 - Head Exam Head Exam: ATRAUMATIC - Eye Exam Eye Exam: Normal appearance - ENT Exam ENT Exam: Mucous Membranes Dry - Respiratory Exam Respiratory Exam: NORMAL BREATHING PATTERN - Cardiovascular Exam Cardiovascular Exam: +S1, +S2 - GI/Abdominal Exam GI & Abdominal Exam: Normal Bowel Sounds - Extremities Exam Extremities Exam: Normal Inspection Assessment and Plan (1) Thrombocytopenia Assessment & Plan: secondary to relapsed ITP responding to steroids cleared from heme standpoint for D/C outpatient f/u for repeat CBC in 1 week can D/C with Prednisone 50mg PO daily and PPI Status: Acute (2) Anemia Assessment & Plan: H/H improved PRBC transfusion D/C'd Status: Acute
[2017-01-19 12:06] VITALS: BP 117/77; PULSE 79; O2SAT 100
[2017-01-19 12:06] LABS: HEMOGLOBIN 9.5 g/dL (12.0-16.0); MEAN CELL VOLUME 93.6 fl (81.0-99.0); MEAN CORPUSCULAR HGB CONC 36.3 g/dL (33.0-37.0); RBC 2.8 Mil/uL (3.80-5.20)
--- NOTE | 2017-01-19 13:57 | CP.PCM.DIS ---
Provider - Provider Date of Admission: 01/15/17 11:51 Attending physician: Km Melchor MD Time Spent in preparation of Discharge (in minutes): 30 Diagnosis - Discharge Diagnosis (1) Thrombocytopenia Status: Acute Comment: secondary to relapsed ITP. responding to steroids. cleared from heme standpoint for D/C. outpatient f/u for repeat CBC in 1 week. can D/C with Prednisone 50mg PO daily and PPI (2) Anemia Status: Acute Comment: H/H improved. cleared from heme standpoint for D/C. outpatient f/u for repeat CBC in 1 week Hospital Course - Lab Results Lab Results: Most Recent Lab Values WBC 11.0 K/uL (4.8-10.8) H 01/19/17 12:01 RBC 2.80 Mil/uL (3.80-5.20) L 01/19/17 12:01 Hgb 9.5 g/dL (12.0-16.0) L 01/19/17 12:01 Hct 26.3 % (34.0-47.0) L 01/19/17 12:01 MCV 93.6 fl (81.0-99.0) 01/19/17 12:01 MCH 34.0 pg (27.0-31.0) H 01/19/17 12:01 MCHC 36.3 g/dL (33.0-37.0) 01/19/17 12:01 RDW 17.0 % (11.5-14.5) H 01/19/17 12:01 Plt Count 42 K/uL (130-400) L 01/19/17 12:01 Manual Plt Count 26 K/uL (130-400) L* 01/17/17 06:10 MPV 9.6 fl (7.2-11.7) 01/16/17 06:00 Neut % (Auto) 85.7 % (50.0-75.0) H 01/16/17 06:00 Lymph % (Auto) 10.4 % (20.0-40.0) L 01/16/17 06:00 [place] % (Auto) 3.7 % (0.0-10.0) 01/16/17 06:00 Eos % (Auto) 0.0 % (0.0-4.0) 01/16/17 06:00 Baso % (Auto) 0.2 % (0.0-2.0) 01/16/17 06:00 Neut # 11.2 K/uL (1.8-7.0) H 01/16/17 06:00 Lymph # 1.4 K/uL (1.0-4.3) 01/16/17 06:00 [place] # 0.5 K/uL (0.0-0.8) 01/16/17 06:00 Eos # 0.0 K/uL (0.0-0.7) 01/16/17 06:00 Baso # 0.0 K/uL (0.0-0.2) 01/16/17 06:00 Retic Count 8.7 % (0.5-1.5) H D 01/16/17 06:00 PT 12.3 Seconds (9.8-13.1) 01/15/17 10:00 INR 1.2 (0.9-1.2) 01/15/17 10:00 APTT 59.6 Seconds (25.6-37.1) H 01/15/17 10:00 Sodium 139 mmol/l (132-148) 01/18/17 06:25 Potassium 4.8 MMOL/L (3.6-5.0) 01/18/17 06:25 Chloride 103 mmol/L (98-107) 01/18/17 06:25 Carbon Dioxide 26 mmol/L (22-30) 01/18/17 06:25 Anion Gap 15 (10-20) 01/18/17 06:25 BUN 38 mg/dl (7-17) H 01/18/17 06:25 Creatinine 1.7 mg/dL (0.7-1.2) H 01/18/17 06:25 Est GFR ( Amer) 38 01/18/17 06:25 Est GFR (Non-Af Amer) 32 01/18/17 06:25 Random Glucose 129 mg/dL (65-105) H 01/18/17 06:25 Calcium 9.5 mg/dL (8.4-10.2) 01/18/17 06:25 Ferritin 209.0 ng/mL 01/16/17 05:30 Total Bilirubin 0.8 mg/dl (0.2-1.3) 01/15/17 10:00 AST 20 U/L (14-36) 01/15/17 10:00 ALT 34 U/L (9-52) 01/15/17 10:00 Alkaline Phosphatase 108 U/L (38-126) 01/15/17 10:00 Total Protein 7.7 G/DL (6.3-8.2) 01/15/17 10:00 Albumin 4.2 g/dL (3.5-5.0) 01/15/17 10:00 Globulin 3.5 gm/dL (2.2-3.9) 01/15/17 10:00 Albumin/Globulin Ratio 1.2 (1.0-2.1) 01/15/17 10:00 Vitamin B12 513 pg/mL (239-931) 01/16/17 05:30 Folate 8.1 ng/mL 01/16/17 05:30 Urine Color Yellow (YELLOW) 01/15/17 10:05 Urine Clarity Clear (Clear) 01/15/17 10:05 Urine pH 5.0 (5.0-8.0) 01/15/17 10:05 Ur Specific [place] 1.013 (1.003-1.030) 01/15/17 10:05 Urine Protein Negative mg/dL (NEGATIVE) 01/15/17 10:05 Urine Glucose (UA) Neg mg/dL (Normal) 01/15/17 10:05 Urine Ketones Negative mg/dL (NEGATIVE) 01/15/17 10:05 Urine Blood Small (NEGATIVE) 01/15/17 10:05 Urine Nitrate Negative (NEGATIVE) 01/15/17 10:05 Urine Bilirubin Negative (NEGATIVE) 01/15/17 10:05 Urine Urobilinogen 0.2-1.0 mg/dL (0.2-1.0) 01/15/17 10:05 Ur Leukocyte Esterase Neg [place]/uL (Negative) 01/15/17 10:05 Urine RBC (Auto) 1 /hpf (0-3) 01/15/17 10:05 Urine Microscopic WBC < 1 /hpf (0-5) 01/15/17 10:05 Ur Squamous Epith Cells < 1 /hpf (0-5) 01/15/17 10:05 Blood Type O POSITIVE 01/15/17 11:00 Antibody Screen Positive 01/15/17 11:00 Antibody Identification Inconclusive Panel 01/15/17 11:00 KARISHMA, Poly Interpret Positive (NEGATIVE) H 01/15/17 11:00 Crossmatch See Detail 01/15/17 11:00 BBK History Checked Patient has bt 01/15/17 11:00 - Hospital Course Hospital Course: patient seen and examined with attending patient feeling well, denies CP, SOB, N/V, abdominal pain, dizziness Afebrile, VS stable WNL - Date & Time of H&P Date of H&P: 01/15/17 Time of H&P: 16:05 Discharge Exam - Head Exam Head Exam: ATRAUMATIC - Additional Findings Additional findings: ENT Exam ENT Exam: Mucous Membranes Moist - Respiratory Exam Respiratory Exam: Clear to Ausculation Bilateral, NORMAL BREATHING PATTERN - Cardiovascular Exam Cardiovascular Exam: REGULAR RHYTHM, +S1, +S2 - GI/Abdominal Exam GI & Abdominal Exam: Soft, Normal Bowel Sounds. absent: Guarding, Rigid, Tenderness - Extremities Exam Extremities Exam: Normal Inspection. absent: Calf Tenderness, Pedal Edema - Neurological Exam Neurological Exam: Alert, Awake, Oriented x3 - Skin Skin Exam: Dry, Intact, Normal color Discharge Plan - Discharge Medications Prescriptions: Famotidine [Pepcid] 40 mg PO DAILY #30 tablet predniSONE [Prednisone] 50 mg PO DAILY #34 tab - Follow Up Plan Condition: GOOD Disposition: HOME/ ROUTINE Instructions: Thrombocytopenia (DC) Additional Instructions: F/u with Dr. Aguayo in 1 week f/u with PMD in 1 week
== END 2017-01-19 14:16 | disposition home or self-care (01) | DRG 813 ==
LOC: H.ER 09:31 → H.ERHOLD 11:51 → H.TEL 15:39
PROVIDERS: ADMIT Family Medicine; ATTEND Family Medicine
PROC: 30233R1 Transfusion of Nonautologous Platelets into Peripheral Vein, Percutaneous Approach (ICD-10-PCS; principal; 2017-01-15)
DX: D69.3 Immune thrombocytopenic purpura (principal); D64.9 Anemia, unspecified; K06.8 Other specified disorders of gingiva and edentulous alveolar ridge; I10 Essential (primary) hypertension; E03.9 Hypothyroidism, unspecified; E78.00 Pure hypercholesterolemia, unspecified; F31.9 Bipolar disorder, unspecified; F41.9 Anxiety disorder, unspecified; Z88.6 Allergy status to analgesic agent; Z87.891 Personal history of nicotine dependence; Z86.73 Personal history of transient ischemic attack (TIA), and cerebral infarction without residual deficits